=== PATIENT | female | born 1985 | race Caucasian/White ===

== ENCOUNTER 2021-11-09 11:18 | Emergency (ER) | payer SELFPAY ==
[2021-11-09] MEDS ORDERED: Sodium Chloride 0.9% 1,000 ML IV ONE (12:05)
[2021-11-09] MEDS ORDERED: Sodium Chloride 0.9% 10 ML Syringe FLUSH PRN (12:05)
== END 2021-11-09 14:06 | disposition home or self-care (01) ==
LOC: JD.ED 11:18
DX: E86.0 Dehydration (principal); R53.83 Other fatigue
CPT/HCPCS: 36415; 71045; 80053; 83735; 84484; 85025; 85610; 85730; 93005; 99284; J7030; 93010

== ENCOUNTER 2022-09-06 12:25 | Emergency (ER) | payer MEDICARE, MEDICAID | END 2022-09-06 14:00 | LOC: JD.ED 12:25 | DX: Z53.21 Procedure and treatment not carried out due to patient leaving prior to being seen by health care provider (principal) ==